=== PATIENT | female | born 1985 | race Asian ===

== ENCOUNTER 2018-07-24 12:33 | Emergency (ER) | payer OTHER ==
[2018-07-24 12:47] VITALS: BP 121/80
--- NOTE | 2018-07-24 12:49 | UC ---
Skin Complaint HPI - HPI Summary HPI Summary: 33-year-old female presents to the urgent complaining of a rash in her left wrist and Rt index w/ a lot of itchiness since 07/13/2018. Pt states she has Hx of urticaria to different environmental allergens. Rash for the past week is worsen w/ mild swelling and pain. Pain is 2/10 at touch, but she thinks it is infected since she has been scratching a lot. She also c/o dry cough on and off for the past month. She usually takes Cetirizine PO which she started taking yesterday. Pt denies fever, SOB, chest pain, abdominal pain, N/V/D. - History of Current Complaint Chief Complaint: UCRespiratory Time Seen by Provider: 07/24/18 12:46 Stated Complaint: COUGH,RASH Hx Obtained From: Patient Hx Last Menstrual Period: 07/14/2018 ?: No Onset/Duration: Gradual Onset, Lasting Weeks - 2 weeks, Still Present, Worse Since - 1 week Skin Exposure Onset/Duration: Days Ago - 07/10/2018 Timing: Constant Onset Severity: Mild Current Severity: Moderate Pain Intensity: 1 Pain Scale Used: 0-10 Numeric Location: Discrete - left wrist and RT index finger Character: Swelling, Pruritus, Pain, Redness, Raised Aggravating Factor(s): Touch Alleviating Factor(s): OTC Meds Associated Signs & Symptoms: Positive: Rash, Tenderness - mild. Negative: Fever , Chills, Hoarseness, Throat Tightening Related History: Possible Reaction to: Environmental Exposure - Allergy/Home Medications Allergies/Adverse Reactions: Allergies Allergy/AdvReac Type Severity Reaction Status Date / Time No Known Allergies Allergy Verified 07/24/18 12:48 Home Medications: Home Medications Cetirizine* [ZyrTEC 10 MG TAB*] 10 mg PO DAILY 07/24/18 [History Confirmed 07/24] Diclofenac Sodium 50 mg PO 07/24/18 [History] Ethinyl Estradiol/Drospirenone [Drospirenone-Ee 3-0.03 mg Tab] 1 tab PO [History] Review of Systems Constitutional: Negative Skin: Rash - left wrist and RT index w/ swelling redness, and itchiness Eyes: Negative ENT: Negative, Nasal Discharge - mild at times clear, Other - +PND clear Respiratory: Cough - dry cough Cardiovascular: Negative Gastrointestinal: Negative Genitourinary: Negative Motor: Negative Neurovascular: Negative Musculoskeletal: Negative Neurological: Negative Psychological: Negative Is Patient Immunocompromised?: No All Other Systems Reviewed And Are Negative: Yes PMH/Surg Hx/FS Hx/Imm Hx Previously Healthy: Yes Other Endocrine History: Urticaria Other GI/ History: Ovarian cyst - Surgical History Surgical History: None - Family History Family History: Psoriasis - Social History Occupation: Employed Full-time Lives: With Family Alcohol Use: None Substance Use Type: None Smoking Status (MU): Never Smoked Tobacco Physical Exam - Summary Physical Exam Summary: Vital Signs Reviewed: Yes General: well developed, well nourished female sitting in the examining table w/ o any apparent distress. Eyes: Positive: Conjunctiva Clear - PERRLA, EOMI ENT: Positive: Normal ENT inspection, Hearing grossly normal, Pharynx normal, TMs normal Neck: Positive: Supple, Nontender, No Lymphadenopathy Respiratory: Positive: Chest nontender, Lungs clear, Normal breath sounds Cardiovascular: Positive: RRR, No Murmur, Pulses Normal Abdomen Description: Positive: Nontender, No Organomegaly, Soft. Negative: CVA Tenderness (R), CVA Tenderness (L) Bowel Sounds: Positive: Present Musculoskeletal: Positive: Strength Intact, ROM Intact, No Edema Neurological Exam: Normal Psychological Exam: Normal Skin: Positive: rashes - medial aspect of left wrist w/ maculopapular eruption w / surrounding erythematous patch w/ indistinct borders, warm to touch, swellen and mild tender to palpation. Also similar eruption in the RT index but very discrete. Triage Information Reviewed: Yes Vital Signs: Initial Vital Signs Temp 97.1 F 07/24/18 12:41 Pulse 95 07/24/18 12:41 Resp 18 07/24/18 12:41 BP 121/80 07/24/18 12:41 Pulse Ox 99 07/24/18 12:41 Course/Dx - Course Course Of Treatment: 33-year-old female presents to the urgent complaining of a rash in her left wrist and Rt index w/ a lot of itchiness since 07/13/2018. Pt states she has Hx of urticaria to different environmental allergens. Rash for the past week is worsen w/ mild swelling and pain. Pain is 2/10 at touch, but she thinks it is infected since she has been scratching a lot. She also c/o dry cough on and off for the past month. She usually takes Cetirizine PO which she started taking yesterday. Pt denies fever, SOB, chest pain, abdominal pain, N/V/ D. Hx obtained. Pt w/ probably contact dermatitis w/ co-infection due to itchiness. Cough is probably due to allergies. Pt Rx Triamcinolone topical cream and Keflex PO as directed below to alleviate symptoms. Pt advised to continue taking Ceterizine PO and advised to f/u w/ her PCP or [employer] Dr Myrick for further management on her allergies. D/c instructions explained. Pt understood and agreed w/ plan of care. - Differential Diagnoses - Skin Complaint Differential Diagnoses: Abscess, Cellulitis, Contact Dermatitis, Local Allergic Reaction, MRSA, Poison Marli, Poison Singer, Urticaria - Diagnoses Provider Diagnoses: 1 Left wrist contact dermatitis w/ co-infection. 2 Cough Discharge - Sign-Out/Discharge Documenting (check all that apply): Patient Departure - D/c home All imaging exams completed and their final reports reviewed: No Studies - Discharge Plan Condition: Stable Disposition: HOME Prescriptions: Cephalexin CAP* [Keflex CAP*] 500 mg PO TID #21 cap Triamcinolone 0.1% OINT(NF) [Kenalog 0.1% OINT(NF)] 1 applic .SEE ORDER BID #1 applic Patient Education Materials: Cellulitis (ED), Allergies (ED) Referrals: [facility] [place] - Sebastian RUVALCABA [Primary Care Provider] - 3 Days Trina Myrick [Medical Doctor] - If Needed Additional Instructions: 1-Please take full course of Antibiotic. 2- If redness and swelling doubles in size despite antibiotic please return to the urgent care or f/u w/ your PCP for further management. 3-Continue taking Ceterizine PO for your allergies to alleviates cough . 4-If not improvement of rash please f/u w/ [employer] Dr Myrick for for further evaluation and treatment. - Billing Disposition and Condition Condition: STABLE Disposition: Home
== END 2018-07-24 13:35 | disposition home or self-care (01) ==
LOC: UCEAST 12:33
DX: L25.9 Unspecified contact dermatitis, unspecified cause (principal); R05 Cough
CPT/HCPCS: 99212; G0463